=== PATIENT | female | born 1970 | race Caucasian/White ===

== ENCOUNTER → 2017-11-15 14:29 | Outpatient (CLI) | payer SELFPAY ==
--- NOTE | 2017-11-16 | EMB_PTH ---
PATIENT: JANIS GERBER LOC: [facility] U#:[id number] AGE/SX: 54/F ROOM: RE11/15/[address]: Dr. Cristiano Green MD : 1970 BED: DIS: SPEC #: [id number] RECD: 11/16/17 13:06 STATUS: DANIEL PILI #: [id number] JANELL: 11/16/17 00:[address]: Cristiano Green DEPT: SURGICAL PATHOLOGY RECD BY: Jacob Ibarra ENTERED: 11/16/17 13:06 SP TYPE: ENDOM BX/C ROSALVA DR: No Primary Care Phys Tissues: Endometrium, NOS Procedures: Surgery Specimen Level IV HEADER OPERATION: Endometrial biopsy PRE-OP DIAGNOSIS: 621.31 TISSUE SUBMITTED: Endometrial biopsy MICROSCOPIC DIAGNOSIS Endometrium, biopsy: Stromal hyperplasia suggestive of exogenous hormonal defect. Transitional endometrium with focal glandular and stromal breakdown. Mild chronic endometritis. AM:maryan 11/17/17 COMMENT Reference is made to the patient?s endometrial biopsy from 2017 ([id number]) in which simple hyperplasia without atypia was identified. MICROSCOPIC DESCRIPTION Slides are reviewed. GROSS DESCRIPTION Received in fixative is one container labeled with the patient's name and designated EM biopsy. The specimen consists of multiple fragments of hemorrhagic soft tissue that in aggregate measure 2.5 x 2.5 x 0.3 cm. The entire specimen is submitted in one cassette. / SJ:rg 11/16/17 TC:3 CPT: 45875
== END ==
PROVIDERS: Visit Provider Obstetrics & Gynecology
DX: N85.00 Endometrial hyperplasia, unspecified (principal); N71.9 Inflammatory disease of uterus, unspecified
CPT/HCPCS: 88305

== ENCOUNTER 2018-08-14 05:43 | Day surgery (SDC) | payer SELFPAY ==
[2018-08-09 11:49] LABS: Hematocrit 29.4 % (37-47); Hemoglobin 8.2 g/dl (12.0-15.0); Mean Corp Hgb Conc 27.9 g/gl (32-36); Mean Corpuscular Hgb 15.8 pg (27.0-32.0); Mean Corpuscular Volume 56.8 fL (81-99); Platelet Count 587 K/mm3 (150-450); RBC Distribution Width CV 21.5 % (11.6-14.6); RBC Distribution Width SD 42.7 fl (35.1-43.9); Red Blood Count 5.18 M/mm3 (4.2-5.4); Scan Indicated on CBC? Y/N YES- FLAGS NOTED; White Blood Count 7.4 K/mm3 (4.4-11.0)
[2018-08-09 11:51] LABS: Prothrombin Time (Protime)PT. 13.2 SECONDS (11.7-14.9)
[2018-08-09 11:59] LABS: Internal QC Validated? YES +Cl - CLEAR BKGD; Pregnancy, Serum, hCG Quali. NEGATIVE Negative
[2018-08-09 12:08] LABS: Creatinine, Serum 0.64 mg/dL (0.55-1.02); EST Glomerular Filtration Rate 105 mL/min (>60); Est Glom Filt Rate - Afr Amer 127 mL/min (>60)
--- NOTE | 2018-08-13 11:30 | HP.PCM_ITS ---
History and Physical Date of Admission: 08/14/18 Surgical History and Physical Sveta Colbert, a 48 year old female 3 0 0 0 3, presents for LAVH/BS on August 14, 2018 at 7:30. -- Menorrhagia, Fibroids, Simple Hyperplasia -- Tolerable symptoms from large fibroid (9 cm---14 cm overall sized uterus) Heavy bleeding and clotting since 06/09/2018. Prolonged Menses which began 6 mo to 1 year. Sveta claims it started gradually and has been present 6 mo to 1 year. It occurs all the time. It is located in the lower abdomen. Sveta characterizes the quality heavy x 3 days. Severity is moderate and not improving. Additional comments are: Referred by Dr. RA Little.; Additional comments are: EMBx showed simple EM hyuperplasia. MEDICATIONS HISTORY: Current medications prescribed by our practice are: 1. medroxyprogesterone 10 mg tablet, One pill by mouth once a day for 10 days monthly to start menses ALLERGIES: No Known Allergies Infections - Chicken pox Illnesses - HTN Accidents - None Hospitalizations - Childbirth Review of Systems: GENERAL - Denies fever, or chills SKIN - Denies skin changes EYES - Denies visual changes EARS - Denies difficulty hearing NOSE - Denies nasal congestion or bleeding MOUTH - Denies sore throat or difficulty swallowing NECK - Denies pain or swelling RESPIRATORY - Denies shortness of breath or wheezing CARDIOVASCULAR - Denies palpitations or chest pain GASTROINTESTINAL - Denies nausea, vomiting, diarrhea, constipation GENITOURINARY - Denies dysuria, frequency of urination, incontinence of urine MUSCULOSKELETAL - Denies joint or muscle pain NEUROLOGICAL - Denies localized numbness or weakness PSYCHIATRIC - Denies depression or anxiety ENDOCRINE - Denies heat or cold intolerance, weight loss or gain HEMATO-IMMUNOLOGIC - Denies excesive bleeding with cuts SOCIAL HISTORY: Alcohol Use - None Smoking - Never Diet - low in sweets Lifestyle - moderate stress lifestyle and Exercise - active Seat Belt Use - most of the time Employer - Twice monthly([employer]) Job Description - clean/flower beds Illicit Drug Use - None Sexual Activity - Spouse-Sig Other Name - Hernan Spouse-Sig Other Occupation - Construction Control - Vasectomy FAMILY HISTORY: MENSTRUAL HISTORY: LMP Known?- DefiniteAmount/Duration - 5-6 DAYS, Regularity - Regular, Frequency - monthly days, LMP - 07/04/18, Age Onset Menarche - 10 PAST PREGNANCIES: Total Pregnancies - 3; Full Term Pregnancies - 3; Premature - 0; Abortions, Induced - 0; Abortions, Spontaneous - 0; Ectopics - 0; Multiple Births - 0; Living Children - 3 PHYSICAL EXAM BP- 152/86 Sitting, Right arm, regular cuff Weight- 221.78412 lbs Height- 65.25 inch BMI:36.57 CONSTITUTIONAL - NAD, well nourished, and well developed SKIN - No rash, lesions, or ulcers HEENT - Normocephalic, PERRLA, EOMI NECK - No nodes, no nuchal rigidity and thyroid normal size and texture LYMPH NODES - Palpation of lymph nodes in neck and groins within normal limits LUNGS - CTA x2 without wheezes, crackles or rales CARDIAC - Regular rate and rhythm without rubs, murmurs, or gallops BREAST - No dominant masses, no tenderness, no axillary adenopathy, no nipple discharge, no skin changes ABDOMEN - Without hepatosplenomegaly, distention, masses, rebound, or guarding; normal bowel sounds; no hernias EXTREMITIES - No edema or calf tenderness NEUROLOGICAL - Cranial nerves II-XII grossly intact PSYCHIATRIC - A and O to time, place, person, mood and affect DETAILED PELVIC EXAM External Genitial Vagina - non-tender without lesions Urethra/Urethral Meatus - non-tender Bladder - non-tender Vagina - vaginal bryan are pink and moist without loss of rugae and no evidence of atropy Cervix - without cervical motion tenderness and has normal size and features without evident lesions Uterus - 17 cm uterus Adnexa - clear without massess or tenderness ASSESSMENT/PLAN: 1. Enlarged Uterus, Leiomyoma, Unspec, Menorrhagia and Simple Endometrial Hyperplasia Without Atypia Discussed options for treatment as intermittant withdrawal with Provera failed. Pt desires we proceed with LAVH/BS. Discussed RBAs and all questions answered.
[2018-08-14] VITALS (15 sets, daily range): BP systolic 112–177; BP diastolic 59–102; PULSE 55–96; RESP 14–18; TEMP 36.2–36.9; O2SAT 90–100; BMI 35.5
[2018-08-14 06:43] LABS: Hematocrit 31.3 % (37-47)
[2018-08-14 06:52] LABS: Internal QC Validated? YES +Cl - CLEAR BKGD; Pregnancy, Urine Negative Negative
--- NOTE | 2018-08-14 07:30 | HYST_PTH ---
PATIENT: JANIS GERBER LOC: [facility] [place] U#:[id number] AGE/SX: 48/F ROOM: RE08/14/[address]: Dr. Cristiano Green MD : 1970 BED: DIS: 08/15/2018 SPEC #: [id number] RECD: 08/14/18 16:16 STATUS: DANIEL PILI #: [id number] JANELL: 08/14/18 07:[address]: Cristiano Green DEPT: SURGICAL PATHOLOGY RECD BY: Shayla Neal ENTERED: 08/15/18 09:14 SP TYPE: HYSTERECT OTHR DR: Dr. Gabriel Castaneda MD Tissues: Uterus, NOS Procedures: Surgery Specimen Level V HEADER OPERATION: Laparoscopic assisted vaginal hysterectomy, bilateral salpingectomy PRE-OP DIAGNOSIS: Menorrhagia, blood loss anemia, simple endometrial hyperplasia, fibroids TISSUE SUBMITTED: Uterus, cervix, bilateral fallopian tubes MICROSCOPIC DIAGNOSIS Uterus, cervix and bilateral fallopian tubes, vaginal hysterectomy and bilateral salpingectomy: Cervix - mild chronic cystic cervicitis and squamous metaplasia. Endometrium - focal area with proliferative endometrium. See comment. Myometrium - leiomyomas (largest measuring 8 cm in greatest dimension). One fallopian tube - focal subepithelial endometriosis. Second fallopian tube - no pathologic diagnosis. Paratubal cyst. SJ:rg 08/16/18 COMMENT Most of the endometrial surface shows denuded epithelium with focal area of fibrinous material and hemorrhage. Sections taken from the lower uterine segment shows proliferative endometrium. Please make reference to previous specimen ([id number]) endometrium, biopsy with diagnosis of simple hyperplasia without atypia. MICROSCOPIC DESCRIPTION Slides are reviewed. GROSS DESCRIPTION Received in fixative is one container labeled with the patient's name and designated uterus, cervix, bilateral fallopian tubes. The specimen consists of a hysterectomy specimen in multiple pieces weighing in aggregate 640 gm. The detached cervix is identified measuring 7 x 4 x 3 cm. The ectocervical mucosa is unremarkable. The external os is oval and patulous in contour. The endocervical canal measures 4.5 cm in length and the endocervical mucosa is mattsno, glistening and unremarkable. Sections of the cervix reveal a few cysts filled with mucoid material. The distal portion of the endometrial cavity is also present in the upper portion of the cervix and measures 1 cm in length. The endometrium in this portion is mattson, glistening, congested and unremarkable. The uterus in multiple pieces measures in aggregate 21 x 19 x 8 cm. The largest piece of uterus measures 13 x 9 x 7 cm. The serosal surface could be identified in this portion which is mattson, glistening and unremarkable. Sections of the uterine wall reveal multiple nodular masses. The largest mass measures 8 cm in greatest dimension. One of the pieces also shows the endometrial lining which is congested and measures <0.1 cm in thickness. The largest mass is present in the largest piece of uterus. Sections of these masses reveal mattson whorled cut surfaces without areas of hemorrhage, necrosis or cystic degeneration. The uninvolved uterine wall measures up to 3 cm in thickness. Also present in the container are two detached fallopian tubes measuring 5.5 cm in length and 0.7 cm in diameter and 4.5 cm in length and 0.5 cm in diameter. The fimbrial end is identified. The smaller fallopian tube also shows a paratubal cyst measuring 1.5 cm in greatest dimension. It is filled with clear fluid. [place] sections are submitted in 12 cassettes as follows: 1 & 2 - cervix, 3-6 - uterine wall including endometrium, 7 & 8 - largest nodular mass, 9 & 10 - intermediate and smaller nodular masses, 11 - one fallopian, 12 - second fallopian tube and paratubal cyst. / DURAN:maryan 08/15/18 TC:1 CPT: 61571
--- NOTE | 2018-08-14 07:40 | PCM.OPRPT ---
Report of Operation Date of Procedure: 08/14/18 Pre-Operative Diagnosis: Menorrhagia, Blood Loss Anemia, Simple Endometrial Hyperplasia, Fibroids Post-Operative Diagnosis: Menorrhagia, Blood Loss Anemia, Simple Endometrial Hyperplasia, Fibroids Surgery/Procedure Performed:: Laparoscopic Assisted Vaginal Hysterectomy and Bilateral Salpingectomy Description of Surgical Findings:: 18 cm fibroid uterus with the fibroid primarily on the anterior portion in the body of the uterus. Fallopian tubes and ovaries with filmy adhesions to the pelvic sidewalls posteriorly. plant technician/control room operator: Won Etienne plant technician/control room operator: Cassy Stevenson Type of Anesthesia:: General - Endotracheal Anesthesiologist: Shruthi Keller Specimen's removed: Uterus and bilateral fallopian tubes Drains: Belle to straight drain Estimated Blood Loss (mL): 750 cc Fluids Replaced: Crystalloid Description of Procedure: Surgeon: Cristiano Green MD, FACOG Indications: This is a 48-year-old who is been having problems with menorrhagia, blood loss anemia, and simple endometrial hyperplasia. Conservative measures have not been helpful. Given this the patient desires that we proceed the above procedure. She has been counseled regarding the risk and indications of this procedure including the possibility of bleeding, infection, and injury to surrounding structures such as bowel bladder. All questions were answered. Procedure: Patient was taken to the operating room where after induction of general anesthesia she was placed in the dorsal lithotomy position and prepped and draped in the usual sterile fashion. A Belle catheter was placed. Anterior cervix was grasped with a tenaculum and anterior cervix circumscribed with cautery on a setting of 35 W coagulation. Anterior vaginal mucosa was undermined and a 4 x 4 raytec sponge was placed to identify the peritoneal reflection of the bladder intraperitoneally. Conn cannula was placed and attention was turned towards the laparoscopic portion of the procedure. Approximately 20 cc of half percent ropivacaine was injected supraumbilically, suprapubically, and approximately 10 cm left and lateral of the umbilicus. A 5 mm bladeless trocar was introduced subumbilically and intraperitoneal placement confirmed. CO2 insufflation was completed and, under direct visualization, a 5 mm bladeless trocar was introduced suprapubically. A 5 mm bladeless trocar was introduced midway on the left between these 2 ports. Enseal was used to cauterize the infundibulopelvic ligaments to the level of the round ligament and the Raytec placed in the vagina was visualized. Scissors was used to open the peritoneum and under direct visualization a narrow [place] was placed vaginally; CO2 gas was stopped and attention turned toward the vaginal hysterectomy portion of the procedure. The posterior aspect of the cervix was circumscribed with a knife and posterior peritoneum entered after a few bites.. Progressive bites were taken on either side of the uterine cervix and each pedicle ligated with 0 Vicryl suture. After approximately the fourth pedicle it was necessary to morcellate the uterus. After morcellation the right superior pedicle was ligated with 0 Vicryl suture and sidewall pedicles were examined and oversewn where necessary with [id number] 0 Vicryl suture to achieve hemostasis. Posterior vaginal cuff was oversewn with running locked 0 Vicryl suture. Hemostasis was noted and peritoneum was closed in a pursestring fashion incorporating the right superior pedicle into the stitch. Vaginal cuff was then closed front to back with interrupted [id number] 0 Vicryl suture. Hemostasis was noted. Attention was turned toward the laparoscopic portion of the procedure. CO2 insufflation was completed and pedicles were examined and noted to be hemostatic except on the right. Enseal device was used to cauterize the remaining mesosalpinx and FloSeal was used across this and the left pedicle after copiously irrigating with saline. Laparoscopic instruments with as much CO2 gas as possible was removed and skin incisions were closed with interrupted 4-0 Monocryl suture. Steri-Strips were placed across the incisions. Patient tolerated the procedure well was taken to recovery room in satisfactory condition; sponge instrument and needle counts were all reportedly correct. Estimated blood loss for the case was 750. Cefotan 2 g IV was given prior to beginning the operative procedure. 1 unit of packed red blood cells was given prior to the procedure. An H&H will be checked in recovery room. There were no apparent complications of the surgery. Specimen to pathology was uterus and bilateral fallopian tubes. Grafts/Implants Used: None - Complications None - Admit VTE Documentation VTE Present on Admission: Yes VTE Mechan Device Prophylaxis: SCD's VTE Pharm Prophylaxis ordered?: Yes
--- NOTE | 2018-08-14 07:44 | OP.PCM_ITS ---
Report of Operation Date of Procedure: 08/14/18 Pre-Operative Diagnosis: Menorrhagia, Blood Loss Anemia, Simple Endometrial Hyperplasia, Fibroids Post-Operative Diagnosis: Menorrhagia, Blood Loss Anemia, Simple Endometrial Hyperplasia, Fibroids Surgery/Procedure Performed:: Laparoscopic Assisted Vaginal Hysterectomy and Bilateral Salpingectomy Description of Surgical Findings:: 18 cm fibroid uterus with the fibroid primarily on the anterior portion in the body of the uterus. Fallopian tubes and ovaries with filmy adhesions to the pelvic sidewalls posteriorly. shirt cleaner: Won Etienne shirt cleaner: Cassy Stevenson Type of Anesthesia:: General - Endotracheal Anesthesiologist: Shruthi Keller Specimen's removed: Uterus and bilateral fallopian tubes Drains: Belle to straight drain Estimated Blood Loss (mL): 750 cc Fluids Replaced: Crystalloid Description of Procedure: Surgeon: Cristiano Green MD, FACOG Indications: This is a 48-year-old who is been having problems with menorrhagia, blood loss anemia, and simple endometrial hyperplasia. Conservative measures have not been helpful. Given this the patient desires that we proceed the above procedure. She has been counseled regarding the risk and indications of this procedure including the possibility of bleeding, infection, and injury to surrounding structures such as bowel bladder. All questions were answered. Procedure: Patient was taken to the operating room where after induction of general anesthesia she was placed in the dorsal lithotomy position and prepped and draped in the usual sterile fashion. A Belle catheter was placed. Anterior cervix was grasped with a tenaculum and anterior cervix circumscribed with cautery on a setting of 35 W coagulation. Anterior vaginal mucosa was undermined and a 4 x 4 raytec sponge was placed to identify the peritoneal reflection of the bladder intraperitoneally. Conn cannula was placed and attention was turned towards the laparoscopic portion of the procedure. Approximately 20 cc of half percent ropivacaine was injected supraumbilically, suprapubically, and approximately 10 cm left and lateral of the umbilicus. A 5 mm bladeless trocar was introduced subumbilically and intraperitoneal placement confirmed. CO2 insufflation was completed and, under direct visualization, a 5 mm bladeless trocar was introduced suprapubically. A 5 mm bladeless trocar was introduced midway on the left between these 2 ports. Enseal was used to cauterize the infundibulopelvic ligaments to the level of the round ligament and the Raytec placed in the vagina was visualized. Scissors was used to open the peritoneum and under direct visualization a narrow [place] was placed vaginally; CO2 gas was stopped and attention turned toward the vaginal hysterectomy portion of the procedure. The posterior aspect of the cervix was circumscribed with a knife and posterior peritoneum entered after a few bites.. Progressive bites were taken on either side of the uterine cervix and each pedicle ligated with 0 Vicryl suture. After approximately the fourth pedicle it was necessary to morcellate the uterus. After morcellation the right superior pedicle was ligated with 0 Vicryl suture and sidewall pedicles were examined and oversewn where necessary with [id number] 0 Vicryl suture to achieve hemostasis. Posterior vaginal cuff was oversewn with running locked 0 Vicryl suture. Hemostasis was noted and peritoneum was closed in a pursestring fashion incorporating the right superior pedicle into the stitch. Vaginal cuff was then closed front to back with interrupted [id number] 0 Vicryl suture. Hemostasis was noted. Attention was turned toward the laparoscopic portion of the procedure. CO2 insufflation was completed and pedicles were examined and noted to be hemostatic except on the right. Enseal device was used to cauterize the remaining mesosalpinx and FloSeal was used across this and the left pedicle after copiously irrigating with saline. Laparoscopic instruments with as much CO2 gas as possible was removed and skin incisions were closed with interrupted 4-0 Monocryl suture. Steri-Strips were placed across the incisions. Patient tolerated the procedure well was taken to recovery room in satisfactory condition; sponge instrument and needle counts were all reportedly correct. Estimated blood loss for the case was 750. Cefotan 2 g IV was given prior to beginning the operative procedure. 1 unit of packed red blood cells was given prior to the procedure. An H&H will be checked in recovery room. There were no apparent complications of the surgery. Specimen to pathology was uterus and bilateral fallopian tubes. Grafts/Implants Used: None - Complications None - Admit VTE Documentation VTE Present on Admission: Yes VTE Mechan Device Prophylaxis: SCD's VTE Pharm Prophylaxis ordered?: Yes
[2018-08-14] MEDS: Ropivacaine 0.5% 30 ML Vial (08:10)
--- NOTE | 2018-08-14 10:42 | DCINST_ITS ---
Discharge Diet: No Restrictions Discharge Activity: Return to Normal Activity, May Not Drive - while taking narcotic pain medications., May Shower May resume sexual activity in: 6-8 weeks Call your doctor if your incision/area has: Continuous Slow Oozing, Sudden Increased Bleeding, Increased Pain/ Swelling, Increased Redness, Foul Smelling Discharge Call your doctor if you observe: Fever of 101 or Higher, Inability to urinate, Inability to have a bowel movement, Using more than one pad per hour Allergies/Adverse Reactions: Allergies No Known Allergies Allergy (Verified 08/08/18 10:09) Medications to take at Discharge Calcium Carbonate/Magnesium Ox [Super Rogerio-Mag Tablet] 3 each PO DAILY 08/08/18 Wheat Germ Oil Pill 3 cap PO DAILY 08/08/18 Docusate Sodium [Colace] 100 mg PO BID PRN PRN #60 cap 08/14/18 Ferrous Sulfate 325 mg PO TIDCM #100 tab 08/14/18 Oxycodone [Oxyir] 5 mg PO Q6H PRN PRN 7 Days #20 tab 08/14/18 The following prescriptions were given: Oxycodone [Oxyir] 5 mg PO Q6H PRN PRN 7 Days #20 tab PRN Reason: Severe Pain (-12/21) Docusate Sodium [Colace] 100 mg PO BID PRN PRN #60 cap PRN Reason: Constipation Ferrous Sulfate 325 mg PO TIDCM #100 tab Primary Care Physician: Gabriel Castaneda [Primary Care Provider] - Test Results: Test results from this visit will be discussed in further detail at your follow- up appointment, if applicable. Please Follow Up With: Cristiano Green MD When: 2-3 weeks
[2018-08-14 11:19] LABS: Hematocrit 27.9 % (37-47)
[2018-08-14] MEDS: Ketorolac 30 MG/ML Syringe IV ×3 (12:05→23:16)
[2018-08-14] MEDS: Dextrose 5%-Lactated Ringers 1,000 ML 150 ML IV ×2 (13:39→20:36)
[2018-08-14] MEDS: HYDROmorphone 0.5 MG/0.5 ML SYRINGE IV (13:39)
[2018-08-14] MEDS: Enoxaparin 30 MG/0.3 ML Syringe SC (17:56)
[2018-08-14] MEDS: 0.9% NaCl Peripheral Flush Adult/Peds IV (23:16)
[2018-08-15 04:55] VITALS: BP 163/77; PULSE 81; RESP 16; TEMP 36.9; O2SAT 99
[2018-08-15] MEDS: Ketorolac 10 MG Tablet PO (05:04)
[2018-08-15 06:08] LABS: Creatinine, Serum 0.66 mg/dL (0.55-1.02); EST Glomerular Filtration Rate 101 mL/min (>60); Est Glom Filt Rate - Afr Amer 122 mL/min (>60); Estimated Creatinine Clearance 96.52 ml/min; Hematocrit 27.2 % (37-47); Hemoglobin 7.7 g/dl (12.0-15.0); Mean Corp Hgb Conc 28.3 g/gl (32-36); Mean Corpuscular Hgb 17.1 pg (27.0-32.0); Mean Corpuscular Volume 60.3 fL (81-99); Mean Platelet Vol. 8.2 fl (6.2-12.0); Platelet Count 448 K/mm3 (150-450); RBC Distribution Width SD 48.4 fl (35.1-43.9); Red Blood Count 4.51 M/mm3 (4.2-5.4); White Blood Count 15.4 K/mm3 (4.4-11.0)
[2018-08-15 06:09] LABS: Scan Indicated on CBC? Y/N YES- FLAGS NOTED
[2018-08-15 06:52] LABS: Differential Comment SEE COMMENTS
--- NOTE | 2018-08-15 08:29 | PCM.PN.OB ---
Subjective: Patient without complaints. Tolerating diet well. Able to void on own. Positive flatus. Minimal vaginal bleeding. Ready to go home. Denies any orthostatic changes. - Physical Exam Vital Signs Temp Pulse Resp BP Pulse Ox 98.4 F 81 16 163/77 H 99 08/15/18 04:55 08/15/18 04:55 08/15/18 04:55 08/15/18 04:55 08/15/18 04:55 Oxygen Flow Rate (L/min) 2 Oxygen Delivery Method Room Air Weight: 220 lb 3.869 oz Body Mass Index (BMI) 35.5 Intake and Output for Last 24 Hours 08/13/18 08/14/18 08/15/18 23:59 23:59 23:59 Intake Total 4711 / 4711 350 / 350 Output Total 3200 / 3200 900 / 900 Balance 1511 / 1511 -550 / -550 Laboratory Tests Past 24 Hrs 08/14/18 08/15/18 08/15/18 11:08 05:40 05:40 WBC 15.4 H RBC 4.51 Hgb 8.0 L 7.7 L Hct 27.9 L 27.2 L MCV 60.3 L MCH 17.1 L MCHC 28.3 L RDW 23.0 H RDW Differential 48.4 H Plt Count 448 MPV 8.2 Differential Comment SEE COMMENTS Creatinine 0.66 Estim Creat Clear Calc 96.52 Est GFR (MDRD) Af Amer 122 Est GFR (MDRD) Non-Af 101 Wounds are clean, dry, intact. Good urine output. Hemoglobin okay and as expected. Medical Necessity - Tobacco Use Smoking Status: Never smoker Assessment/Plan Doing well postoperative day #1 status post laparoscopic assisted vaginal hysterectomy and bilateral salpingectomy. Will release to home with routine instructions.
[2018-08-15 09:14] VITALS: BP 169/77; PULSE 81; RESP 18; TEMP 36.9; O2SAT 100
--- NOTE | 2018-08-15 12:23 | NURSING ---
see anesthesia documentation for blood transfusion. Completed 08/14 at 0839 am in surgery.
== END 2018-08-15 11:00 | disposition home or self-care (01) ==
LOC: SDC 05:49 → AC 05:49 → ACINP 08:50 → MS3 09:08 → MS2 09:08
PROVIDERS: Anesthesiology; Family Provider Family Medicine; PCP Family Medicine; Referring Provider Obstetrics & Gynecology; Visit Provider Obstetrics & Gynecology
PROC: 0UT9FZZ Resection of Uterus, Via Natural or Artificial Opening With Percutaneous Endoscopic Assistance (ICD-10-PCS; CPT 58552; principal; 2018-08-14 07:05)
DX: N92.0 Excessive and frequent menstruation with regular cycle (principal); D50.0 Iron deficiency anemia secondary to blood loss (chronic); N85.01 Benign endometrial hyperplasia; D25.9 Leiomyoma of uterus, unspecified; N73.6 Female pelvic peritoneal adhesions (postinfective); N72 Inflammatory disease of cervix uteri; N83.8 Other noninflammatory disorders of ovary, fallopian tube and broad ligament
CPT/HCPCS: 58552; 36415; 81025; 82565; 84703; 85014; 85018; 85027; 85610; 85730; 86850; 86900; 86920; 88307; J7040; J7120; P9016; A4216; C1760; J2405